=== PATIENT | female | born 1950 | race Caucasian/White ===

== ENCOUNTER 2024-09-03 06:02 | Day surgery (SDC) | payer MEDICARE, BC ==
[2024-09-02 12:40] LABS: ALBUMIN 3.8 G/DL (3.4-5.0); ANION GAP 6 (8-16); BLOOD UREA NITROGEN 12 MG/DL (7-18); CHLORIDE 100 MMOL/L (99-107); CREATININE 1.09 MG/DL (0.40-0.90); GLUCOSE 107 MG/DL (70-104); POTASSIUM 3.9 MMOL/L (3.5-5.1); SODIUM 138 MMOL/L (135-145); TOTAL CARBON DIOXIDE 31.8 MMOL/L (24-32); eGFR 49 ML/MIN
[2024-09-02 12:44] LABS: APTT 25 SECONDS (22-32); INR 1.1 INR; PROTHROMBIN TIME 11.1 SECONDS (9.0-12.0)
[2024-09-02 12:50] LABS: BASOPHILS # (AUTO) 0.1 X10'3 (0-0.2); BASOPHILS % (AUTO) 0.5 % (0-1); EOSINOPHILS # (AUTO) 0.3 X10'3 (0-0.9); HEMATOCRIT 35.1 % (35.0-45.0); HEMOGLOBIN 11.6 g/dl (12.0-16.0); LYMPHOCYTES # (AUTO) 2.5 X10'3 (1.1-4.8); LYMPHOCYTES % (AUTO) 22.6 % (21-51); MEAN CORPUSCULAR HEMOGLOBIN 29.3 PG (27.0-31.0); MEAN CORPUSCULAR HGB CONC 32.9 g/dL (33.0-36.5); MEAN CORPUSCULAR VOLUME 89.1 FL (78-98); MEAN PLATELET VOLUME 7.4 FL (7.4-10.4); MONOCYTES # (AUTO) 0.9 X10'3 (0-0.9); MONOCYTES % (AUTO) 8.6 % (2-12); NEUTROPHILS # (AUTO) 7.1 X10'3 (1.8-7.7); NEUTROPHILS % (AUTO) 65.3 % (42-75); PLATELET COUNT 379 X10'3 (140-440); RED BLOOD COUNT 3.94 X10'6 (4.20-5.60); RED CELL DISTRIBUTION WIDTH 15.3 % (11.5-14.5); WHITE BLOOD COUNT 10.9 X10'3 (4.5-11.0)
[~2024-09-03] VITALS: Ht 167.6 cm; Wt 76.7 kg
[2024-09-03] VITALS (10 sets, daily range): BP systolic 95–145; BP diastolic 58–68; PULSE 67–89; RESP 13–20; TEMP 98.2; O2SAT 92–98
[~2024-09-03 06:02] MED LIST: ceFAZolin 2gm in dextrose, iso 50 ML IV ONE; normal saline 1000ml 1,000 ML IV SCH
[2024-09-03] MEDS ORDERED: ROSU20TA73 PO (07:00)
[2024-09-03] MEDS ORDERED: PANT40SU2 PO (07:00)
[2024-09-03] MEDS ORDERED: OXYC-150 PO (07:00)
[2024-09-03] MEDS ORDERED: CYCL-1 PO (07:00)
[2024-09-03] MEDS ORDERED: SOTA80TA46 PO (07:00)
[2024-09-03] MEDS ORDERED: WARF1TAB83 PO (07:00)
[2024-09-03] MEDS ORDERED: DULO-31 PO (07:00)
[2024-09-03] MEDS ORDERED: fentaNYL/PF 50MCG/1 ML 2ML syringe ONE ×2 (07:19→09:25)
[2024-09-03] MEDS ORDERED: LIDOcaine 1% W/epiNEPHrine 1:100,000 20ml vial ONE (07:19)
[2024-09-03] MEDS ORDERED: midazolam 1 mg/ML 2ml injection ONE ×2 (07:19→08:51)
[2024-09-03] MEDS ORDERED: ceFAZolin 1000mg inj ONE (07:20)
[2024-09-03] MEDS ORDERED: iohexol 350 MG/ML 50ML vial IV ONE (07:20)
[2024-09-03] MEDS ORDERED: hydrALAZINE 20mg/ml inj. ONE (08:37)
[2024-09-03] MEDS ORDERED: diphenhydrAMINE 50 mg/ml inj ONE (09:15)
[2024-09-03] MEDS ORDERED: HYDROcodone/acetaminophen 5mg/325mg tablet PO PRN (10:55)
[2024-09-03] MEDS: VANCOMYCIN 1GM 200ML H20 (PEG) 200 ML IV ONE (12:23)
[2024-09-03] MEDS: normal saline 1000ml 1,000 ML IV SCH (12:24)
[2024-09-03] MEDS: HYDROcodone/acetaminophen 10/325mg tab PO PRN (13:16)
[2024-09-03] MEDS ORDERED: CEPH-585 PO (15:37)
== END 2024-09-03 16:08 | disposition home or self-care (01) ==
LOC: SSTAY O 06:02
PROVIDERS: ATTEND Internal Medicine Cardiovascular Disease
DX: I49.5 Sick sinus syndrome (principal); R00.1 Bradycardia, unspecified; R42 Dizziness and giddiness; R53.83 Other fatigue; I10 Essential (primary) hypertension; I48.0 Paroxysmal atrial fibrillation; E89.0 Postprocedural hypothyroidism; E78.5 Hyperlipidemia, unspecified; K21.9 Gastro-esophageal reflux disease without esophagitis; J45.909 Unspecified asthma, uncomplicated; F41.9 Anxiety disorder, unspecified; F32.A Depression, unspecified; G47.00 Insomnia, unspecified; M19.90 Unspecified osteoarthritis, unspecified site; Z79.01 Long term (current) use of anticoagulants; Z79.899 Other long term (current) drug therapy; Z90.49 Acquired absence of other specified parts of digestive tract; Z90.81 Acquired absence of spleen; Z98.84 Bariatric surgery status; Z98.891 History of uterine scar from previous surgery; Z82.49 Family history of ischemic heart disease and other diseases of the circulatory system
CPT/HCPCS: 33208; 36415; 71046; 80048; 85025; 85610; 85730; 93005; 99152; 99153; A4565; A6258; A6402; C1785; C1898; J0360; J0690; J1200; J2250; J3010; J3372; J3490; J7030; Q9967; Z7610; A6449

== ENCOUNTER → 2025-03-19 | Outpatient (CLI) | payer MEDICARE, BC ==
[~2025-03-19] MED LIST changes: +CYCL-1 PO; +DULO-31 PO; +OXYC-150 PO; +PANT40SU2 PO; +ROSU20TA98 PO; +SOTA80TA46 PO; +WARF3TAB56 PO; -ceFAZolin 2gm in dextrose, iso 50 ML IV ONE; +iohexol 300mg/ml 100ml inj. ONE; -normal saline 1000ml 1,000 ML IV SCH
[2025-03-19 12:04] LABS: ALBUMIN 3.6 G/DL (3.4-5.0); ANION GAP 7 (8-16); BLOOD UREA NITROGEN 18 MG/DL (7-18); BUN/CREATININE RATIO 16.5 (10.0-20.0); CALCIUM 8.7 MG/DL (8.5-10.1); CHLORIDE 105 MMOL/L (99-107); CREATININE 1.09 MG/DL (0.40-0.90); GLUCOSE 89 MG/DL (70-104); POTASSIUM 3.9 MMOL/L (3.5-5.1); SODIUM 141 MMOL/L (135-145); TOTAL CARBON DIOXIDE 29.2 MMOL/L (24-32); eGFR 49 ML/MIN
--- NOTE | 2025-03-19 16:07 | RADIOLOGY REPORT ---
EXAM: CT CT CHEST W/ IV CONTRAST INDICATION: PYOTHORAX WITHOUT FISTULA TECHNIQUE: Contrast axial images of the chest have been obtained along with coronal and sagittal refo rmatted images. CT scans at this facility use dose modulation, iterative reconstruction, and/or weigh t based dosing when appropriate to reduce radiation dose to as low as reasonably achievable. COMPARISON: CT CT CHEST on DOS: 09/12/24 FINDINGS: [LOWER NECK]: Left thyroid appears surgically absent [LYMPH NODES/MEDIASTINUM]: No abnormal lymph nodes by CT size criteria [CARDIOVASCULAR]: Normal cardiac size. No pericardial effusion. No aneurysmal dilatation of the great vessels. Coronary artery calcifications. [UPPER ABDOMEN]: Renal caliceal stones. Area of cortical scarring of the left posterior superior kidn ey. Postsurgical/postoperative changes to the stomach. [MUSCULOSKELETAL]: No acute fracture or aggressive focal osseous lesion. Multilevel degenerative rm ge of the visualized spine. Prior left lateral midthoracic rib fractures. [CHEST WALL]: Left anterior chest cardiac devices [LUNG PARENCHYMA/PLEURAL SPACE]: No pleural effusion or pneumothorax. Pleural-parenchymal scarring in the left lung base. IMPRESSION: 1. No CT evidence of an acute intrathoracic process. Upon comparison with the prior examination, reso lution previously identified large left-sided presumed empyema and large left-sided pneumothorax. Res idual area of pleural-parenchymal scarring in the left lung base.
== END | disposition home or self-care (01) ==
LOC: RAD 10:30
PROVIDERS: ATTEND Surgery
DX: J86.9 Pyothorax without fistula (principal); N20.0 Calculus of kidney; E89.0 Postprocedural hypothyroidism; J98.4 Other disorders of lung
CPT/HCPCS: 36415; 71260; 80048; Q9967